=== PATIENT | female | born 1975 | race Caucasian/White ===

== ENCOUNTER 2021-01-25 21:06 | Emergency (ER) | payer MEDICAID ==
[~2021-01-25] VITALS: Ht 154.9 cm; Wt 88.6 kg
[~2021-01-25 21:06] MED LIST: ACYCLOVIR400 MG PO; ADVAIR DISK1 IN; ALLEGRA-D12 HOUR OR; AMOXIL500 MG OR; ATENOLOL50 MG PO; BENADRYL25 MG OR; BONTRIL PDM35 MG OR; HYDROCHLOROT25 MG OR; KLOR-CON 1010 ME1 OR; LIPITOR20 M1 PO; LISINOP/HCTZ1 TA1 OR; LISINOPRIL10 MG OR; LISINOPRIL10 MG PO; LORTAB 5 OR; MAXZIDE-2537.5 MG/TA PO; MOTRIN600 MG OR; NAPROXEN250 MG PO; NASACORT AQ55 MCG/AC; OMEPRAZOLE DR40 MG PO; PHENTERMINE37.5 M1 PO; PROVENTIL HFA IN; PULMICORT0.25 MG/2 IN; RANITIDINE300 MG PO; TORADOL OR; VENTOLIN HFA; XOPENEX0.31 MG IN; ZPAK OR; ZYRTEC10 M5 PO; ZYRTEC10 MG OR
[2021-01-25 22:13] LABS: HEMATOCRIT 40.4 % (37.0-47.0); HEMOGLOBIN 13.5 g/dl (12.0-16.0); IMMATURE GRANULOCYTES 0.3 % (0.0-5.0); MEAN CELL VOLUME 91.4 fL CALC (80.0-100.0); MEAN CORPUSCULAR HGB 30.5 pG CALC (26.0-32.0); MEAN CORPUSCULAR HGB CONC 33.4 g/dL CAL (32.0-36.0); NEUT# 4.43 thou/uL (2.00-7.15); RED BLOOD COUNT 4.42 mill/uL (4.20-5.60); RED CELL DISTRI WIDTH 12.3 % (11.5-15.5)
[2021-01-25 22:30] LABS: ALBUMIN 4.5 g/dL (3.2-5.0); ALKALINE PHOSPHATASE 49 u/l (38-126); ANION GAP 13 (6-22 (CALC)); BILIRUBIN, TOTAL 0.6 mg/dL (0.0-1.4); BUN 20 mg/dL (7-17); BUN/CREATININE RATIO 24 (12-20 (CALC)); CARBON DIOXIDE 25 mmol/l (22-30); CHLORIDE 101 mmol/l (95-108); CREATININE 0.8 mg/dL (0.5-1.0); GFR > 60 ML/MIN (>=60 (CALC)); GFR FOR AFR.AMER. > 60 ML/MIN (>=60 (CALC)); POTASSIUM 4.2 mmol/l (3.5-5.1); SGOT/AST 26 u/l (14-36); SODIUM 134 mmol/l (137-146); TOTAL PROTEIN 7.5 g/dL (6.3-8.2)
[2021-01-25] MEDS ORDERED: PREDNISONE10 MG PO (22:37)
[2021-01-25 22:42] VITALS: BP 140/69
== END 2021-01-25 22:53 | disposition home or self-care (01) ==
LOC: ED 21:06
PROVIDERS: Family Medicine
DX: L29.9 Pruritus, unspecified (principal); I10 Essential (primary) hypertension; M06.9 Rheumatoid arthritis, unspecified